=== PATIENT | male | born 1955 | race Caucasian/White ===

== ENCOUNTER 2017-02-08 15:20 | Emergency (ER) | payer OTHER ==
[~2017-02-08] VITALS: Ht 175.2 cm; Wt 72.6 kg
[2017-02-08 16:25] LABS: BASO # 0.1 10*3/uL (0.0-0.1); EOS % 0.5 % (1.0-4.0); HEMATOCRIT 44.5 % (42.0-52.0); HEMOGLOBIN 15.8 g/dl (14.0-18.0); LYMPH # 1.7 10*3/uL (1.3-4.4); LYMPH % 21.4 % (27.0-41.0); MEAN CELL VOLUME 89.7 fl (80.0-94.0); MEAN CORPUSCULAR HGB 31.9 pg (27.0-31.0); MEAN CORPUSCULAR HGB CONC 35.5 g/dl (33.0-37.0); MEAN PLATELET VOLUME 10.4 fl (9.6-12.3); MONO # 0.7 10*3/uL (0.1-1.0); MONO % 9.2 % (3.0-9.0); NEUT # 5.2 10*3/uL (2.3-7.9); NEUT % 67.8 % (47.0-73.0); PLATELET COUNT AUTOMATED 185 10*3/uL (130-400); RED BLOOD COUNT 4.96 10*6/uL (4.50-5.90); RED CELL DISTRI WIDTH 12.1 % (0-14.5); WHITE BLOOD COUNT 7.7 10*3/uL (4.8-10.8)
[2017-02-08 16:34] LABS: ACT PARTIAL THROMBO TIME 22.7 SECONDS (20.8-31.5)
[2017-02-08 16:42] LABS: ALBUMIN 3.9 gm/dl (3.1-4.5); ALKALINE PHOSPHATASE 65 U/L (45-117); BUN 20 mg/dl (7-24); CHLORIDE 103 mmol/L (98-107); CREATININE 0.93 mg/dL (0.70-1.30); LIPASE 141 U/L (73-393); POTASSIUM 3.8 mmol/L (3.5-5.1); SGOT/AST 77 IU/L (3-35); SGPT/ALT 85 U/L (12-78); SODIUM 138 mmol/L (136-145); TOTAL PROTEIN 7.1 gm/dL (6.4-8.2)
== END 2017-02-08 19:56 | disposition short-term general hospital (02) ==
LOC: ED 15:20
PROVIDERS: Nurse Practitioner Family
DX: R00.2 Palpitations (principal); T82.198A Other mechanical complication of other cardiac electronic device, initial encounter; R79.89 Other specified abnormal findings of blood chemistry; F17.200 Nicotine dependence, unspecified, uncomplicated; I25.2 Old myocardial infarction; Z95.5 Presence of coronary angioplasty implant and graft; Y92.9 Unspecified place or not applicable

== ENCOUNTER 2017-05-16 17:23 | Inpatient (IN) | payer OTHER ==
[~2017-05-16] VITALS: Ht 175.2 cm; Wt 74.2 kg
--- NOTE | ~2017-05-16 | ST ---
[place], [place] EXERCISE STRESS TEST REPORT NAME[facility]: [id number] UNIT #: [id number] ROOM: [id number] DOCTOR: PRISCA QUISPE MD BIRTHDATE: [birth year] DOS: 05/17/2017 REFERRING PHYSICIAN: Dr. Hooper. INDICATION: Central chest pain. The patient underwent standard protocol Lexiscan stress EKG. The baseline EKG showed normal sinus rhythm with poor R-wave progression, nonspecific ST-T wave changes and demand atrial pacing. The patient's baseline heart rate was 65 with blood pressure of 118/82. The patient's peak heart rate was 109 with blood pressure 140/88. The patient had no chest pain, no ischemic changes and no arrhythmias were noted. SUMMARY OF FINDINGS: Unremarkable Lexiscan stress EKG. Please see separate report for perfusion scan results. PRISCA QUISPE MD CM:STRESS:EXERCISE STRESS TEST REPORT [id number] PRISCA QUISPE MD
[2017-05-16 17:37] VITALS: BP 168/111
[2017-05-16 17:47] LABS: BASO # 0.1 10*3/uL (0.0-0.1); BASO % 1.1 % (0.0-1.0); EOS # 0.2 10*3/uL (0.0-0.4); EOS % 2.5 % (1.0-4.0); HEMATOCRIT 44.5 % (42.0-52.0); HEMOGLOBIN 15.4 g/dl (14.0-18.0); LYMPH % 33.5 % (27.0-41.0); MEAN CELL VOLUME 93.7 fl (80.0-94.0); MEAN CORPUSCULAR HGB 32.4 pg (27.0-31.0); MEAN CORPUSCULAR HGB CONC 34.6 g/dl (33.0-37.0); MEAN PLATELET VOLUME 10.9 fl (9.6-12.3); MONO # 0.9 10*3/uL (0.1-1.0); MONO % 10.2 % (3.0-9.0); NEUT # 4.6 10*3/uL (2.3-7.9); NEUT % 52.5 % (47.0-73.0); PLATELET COUNT AUTOMATED 185 10*3/uL (130-400); RED BLOOD COUNT 4.75 10*6/uL (4.50-5.90); RED CELL DISTRI WIDTH 13.1 % (0-14.5); WHITE BLOOD COUNT 8.8 10*3/uL (4.8-10.8)
[2017-05-16 17:56] LABS: ACT PARTIAL THROMBO TIME 25.5 SECONDS (20.8-31.5)
[2017-05-16 18:02] LABS: ALBUMIN 3.9 gm/dl (3.1-4.5); ALKALINE PHOSPHATASE 66 U/L (45-117); BUN 17 mg/dl (7-24); CHLORIDE 101 mmol/L (98-107); CREATININE 0.91 mg/dL (0.70-1.30); SGOT/AST 53 IU/L (3-35); SGPT/ALT 73 U/L (12-78); SODIUM 139 mmol/L (136-145); TOTAL PROTEIN 7.6 gm/dL (6.4-8.2)
[2017-05-16 18:03] LABS: TROPONIN I 0.024 ng/ml (<0.045)
[2017-05-16 18:16] VITALS: BP 135/89
[2017-05-16 19:30] VITALS: BP 121/77
[2017-05-16] MEDS ORDERED: CLOPIDOGREL75 MG PO (20:35)
[2017-05-16] MEDS ORDERED: LISINOPRIL20 MG PO (20:35)
[2017-05-16] MEDS ORDERED: LIPITOR40 MG PO (20:35)
[2017-05-16] MEDS ORDERED: ALDACTONE25 M1 PO (20:37)
[2017-05-17] VITALS: BP 123/81
[2017-05-17 06:41] LABS: BASO # 0.1 10*3/uL (0.0-0.1); BASO % 1.3 % (0.0-1.0); EOS # 0.3 10*3/uL (0.0-0.4); HEMATOCRIT 43.7 % (42.0-52.0); HEMOGLOBIN 15.5 g/dl (14.0-18.0); LYMPH # 1.6 10*3/uL (1.3-4.4); LYMPH % 24.9 % (27.0-41.0); MEAN CELL VOLUME 92.8 fl (80.0-94.0); MEAN CORPUSCULAR HGB 32.9 pg (27.0-31.0); MEAN CORPUSCULAR HGB CONC 35.5 g/dl (33.0-37.0); MEAN PLATELET VOLUME 10.7 fl (9.6-12.3); MONO # 0.7 10*3/uL (0.1-1.0); MONO % 10.5 % (3.0-9.0); NEUT # 3.6 10*3/uL (2.3-7.9); NEUT % 58.1 % (47.0-73.0); PLATELET COUNT AUTOMATED 168 10*3/uL (130-400); RED BLOOD COUNT 4.71 10*6/uL (4.50-5.90); WHITE BLOOD COUNT 6.3 10*3/uL (4.8-10.8)
[2017-05-17 06:59] LABS: ALBUMIN 3.6 gm/dl (3.1-4.5); ALKALINE PHOSPHATASE 61 U/L (45-117); BUN 15 mg/dl (7-24); CHLORIDE 104 mmol/L (98-107); CHOLESTEROL 157 mg/dL (<200); CREATININE 0.81 mg/dL (0.70-1.30); FREE T4 0.88 ng/dl (0.76-1.46); HDL CHOLESTEROL 50 mg/dl (40-60); LDL CHOLESTEROL 55 mg/dL (9-159); PHOSPHOROUS 3.6 mg/dL (2.5-4.9); POTASSIUM 4.1 mmol/L (3.5-5.1); SGOT/AST 49 IU/L (3-35); SGPT/ALT 68 U/L (12-78); SODIUM 141 mmol/L (136-145); TOTAL PROTEIN 6.7 gm/dL (6.4-8.2); TRIGLYCERIDES 260 mg/dl (<150); VLDL CHOLESTEROL 52 mg/dL (6-40)
[2017-05-17 07:04] LABS: THYROID STIM HORMONE (HS) 0.828 uIU/ml (0.358-4.75)
[2017-05-17 07:09] LABS: ACT PARTIAL THROMBO TIME 24.7 SECONDS (20.8-31.5)
[2017-05-17 08:00] VITALS: BP 129/85
[2017-05-17 08:38] LABS: VITAMIN D, 25-HYDROXY 29.8 ng/mL (30-100)
[2017-05-17] MEDS ORDERED: ASPIRIN ADULT L81 M2 PO (08:48)
[2017-05-17] MEDS ORDERED: MULTIPLE VITAM1 EAC1 PO (08:49)
[2017-05-17 12:00] VITALS: BP 131/85
[2017-05-17 14:00] VITALS: BP 130/90
[2017-05-17] MEDS ORDERED: TOPROL XL200 MG PO (14:59)
[2017-05-17] MEDS ORDERED: VITAMIN D-32000 UNIT PO (14:59)
[2017-05-17] MEDS ORDERED: NICOTINE PATCH1 EAC2 TD (15:05)
[2017-05-17] MEDS ORDERED: LASIX20 MG PO (15:42)
[2017-05-17 16:21] VITALS: BP 129/80
== END 2017-05-17 16:00 | disposition home or self-care (01) | DRG 313 ==
LOC: ED 17:23 → EDHOLD 18:53 → 5E 18:53
PROVIDERS: Emergency Medicine; Family Medicine
PROC: 3E073KZ Introduction of Other Diagnostic Substance into Coronary Artery, Percutaneous Approach (ICD-10-PCS; principal; 2017-05-17)
PROC: 4A02XM4 Measurement of Cardiac Total Activity, External Approach (ICD-10-PCS; principal; 2017-05-17)
PROC: HZ34ZZZ Individual Counseling for Substance Abuse Treatment, Interpersonal (ICD-10-PCS; 2017-05-17)
DX: R07.89 Other chest pain (principal); I25.10 Atherosclerotic heart disease of native coronary artery without angina pectoris; I11.0 Hypertensive heart disease with heart failure; I50.9 Heart failure, unspecified; F41.9 Anxiety disorder, unspecified; I25.5 Ischemic cardiomyopathy; E55.9 Vitamin D deficiency, unspecified; E78.1 Pure hyperglyceridemia; Z95.810 Presence of automatic (implantable) cardiac defibrillator; Z90.49 Acquired absence of other specified parts of digestive tract; Z82.49 Family history of ischemic heart disease and other diseases of the circulatory system; Z83.6 Family history of other diseases of the respiratory system; I25.2 Old myocardial infarction; Z79.82 Long term (current) use of aspirin; Z79.899 Other long term (current) drug therapy; Z86.711 Personal history of pulmonary embolism; Z79.01 Long term (current) use of anticoagulants; Z72.89 Other problems related to lifestyle; Z72.0 Tobacco use